=== PATIENT | male | born 1975 | race Caucasian/White ===

== ENCOUNTER → 2016-12-16 | Outpatient (CLI) | payer BC ==
[2016-12-16 18:16] LABS: BASO % 0.8 % (0.0-1.0); EOS # 0.2 K/mm3 (0.0-0.50); EOS % 2.6 % (0.0-3.0); LARGE UNSTAINED CELL # 0.2 K/mm3 (0.0-0.4); LARGE UNSTAINED CELL % 2.2 % (0.0-4.0); LYMPH # 2.1 K/mm3 (1.5-4.5); LYMPH % 29.7 % (24.0-44.0); MEAN CORPUSCULAR HEMOGLOBIN 31.2 pg (27.0-33.0); MEAN CORPUSCULAR HGB CONC 33.1 g/dl (32.0-36.5); MEAN CORPUSCULAR VOLUME 94.1 fl (80.0-96.0); MONO # 0.4 K/mm3 (0.0-0.8); MONO % 5.9 % (0.0-5.0); NEUTROPHILS # 3.9 K/mm3 (1.8-7.7); NEUTROPHILS % 58.8 % (36.0-66.0); PLATELET COUNT, AUTOMATED 202 k/mm3 (150-450); RED CELL DISTRIBUTION WIDTH 12.4 % (11.5-14.5); WHITE BLOOD COUNT 6.6 K/mm3 (4.0-10.0)
[2016-12-16 18:23] LABS: ALBUMIN 4.3 GM/DL (3.2-5.2); ALBUMIN/GLOBULIN RATIO 1.59 (1.00-1.93); ALKALINE PHOSPHATASE 56 U/L (45-117); ALT/SGPT 24 U/L (12-78); ANION GAP 2 MEQ/L (8-16); AST/SGOT 18 U/L (15-37); BILIRUBIN,TOTAL 0.4 MG/DL (0.2-1.0); BLOOD UREA NITROGEN 14 MG/DL (7-18); CALCIUM LEVEL 9.5 MG/DL (8.5-10.1); CARBON DIOXIDE LEVEL 33 MEQ/L (21-32); CHLORIDE LEVEL 107 MEQ/L (98-107); CREATININE FOR GFR 1.04 MG/DL (0.70-1.30); GLOMERULAR FILTRATION RATE > 60.0 (>60); GLUCOSE, FASTING 111 MG/DL (70-105); POTASSIUM SERUM 4.7 MEQ/L (3.5-5.1); SODIUM LEVEL 142 MEQ/L (136-145)
== END ==
LOC: M WUC 14:17
PROVIDERS: ATTEND Physician Assistant
DX: R31.9 Hematuria, unspecified (principal); R10.30 Lower abdominal pain, unspecified

== ENCOUNTER → 2016-12-18 | Outpatient (CLI) | payer BC ==
--- NOTE | 2016-12-18 10:56 | REP ---
KUB TWO VIEWS: HISTORY: Abdominal pain. A small amount of air is present in small and large intestine. There are no air fluid levels or dilated loops of intestine. There is no pneumoperitoneum. A moderate amount of stool is present in the colon. IMPRESSION: Nonspecific bowel gas pattern. Signed by Blayne Limon MD 12/18/2016 10:00 A
== END ==
LOC: M WUC 09:04
PROVIDERS: ATTEND Physician Assistant
DX: R10.30 Lower abdominal pain, unspecified (principal)

== ENCOUNTER 2021-08-25 11:53 | Emergency (ER) | payer OTHER, BC ==
[~2021-08-25] VITALS: Ht 200.7 cm; Wt 108.3 kg
[2021-08-25 17:55] VITALS: BP 138/88
== END 2021-08-25 17:56 | disposition home or self-care (01) ==
LOC: M ED 11:53
DX: R22.43 Localized swelling, mass and lump, lower limb, bilateral (principal); M25.561 Pain in right knee; X50.0XXA Overexertion from strenuous movement or load, initial encounter; Y92.9 Unspecified place or not applicable; Y93.9 Activity, unspecified; Y99.0 Civilian activity done for income or pay; Z88.0 Allergy status to penicillin; Z88.2 Allergy status to sulfonamides

== ENCOUNTER → 2021-08-28 | Outpatient (CLI) | payer OTHER, BC ==
[~2021-08-28] MED LIST: FLOM0.4C39 PO; HYDR-3713 PO; KETO10TAB PO; ONDA4TAB6 PO
== END ==
LOC: M SOG 09:39
PROVIDERS: ATTEND Orthopaedic Surgery Hand Surgery
DX: M25.561 Pain in right knee (principal)

== ENCOUNTER 2021-09-02 07:45 | Emergency (ER) | payer BC, OTHER ==
[~2021-09-02] VITALS: Ht 200.7 cm; Wt 104.5 kg
[2021-09-02] MEDS ORDERED: NS 1,000 ML IV ONE (08:45)
[2021-09-02] MEDS ORDERED: KETOROLAC 30 MG/ML 1ML VIAL IV ONE (08:45)
[2021-09-02 09:13] LABS: BASO # 0.1 10^3/uL (0.0-0.2); BASO % 0.6 % (0.0-1.0); EOS # 0.2 10^3/uL (0.0-0.5); EOS % 1.8 % (0.0-3.0); HEMATOCRIT 41.8 % (42.0-52.0); HEMOGLOBIN 14.1 g/dl (13.5-17.5); LYMPH # 3.1 10^3/uL (1.5-5.0); LYMPH % 31.4 % (24.0-44.0); MEAN CORPUSCULAR HGB CONC 33.7 g/dl (32.0-36.5); MEAN CORPUSCULAR VOLUME 88.9 fl (80.0-96.0); MONO % 9.5 % (2.0-8.0); NEUTROPHILS # 5.6 10^3/uL (1.5-8.5); NEUTROPHILS % 55.7 % (36.0-66.0); PLATELET COUNT, AUTOMATED 204 10^3/uL (150-450)
[2021-09-02 09:37] LABS: ALBUMIN 3.8 GM/DL (3.2-5.2); ALT/SGPT 56 U/L (12-78); BILIRUBIN,DIRECT 0.1 MG/DL (0.0-0.2); BILIRUBIN,TOTAL 0.4 MG/DL (0.2-1.0); BLOOD UREA NITROGEN 16 MG/DL (7-18); CALCIUM LEVEL 9.3 MG/DL (8.5-10.1); CARBON DIOXIDE LEVEL 27 MEQ/L (21-32); CHLORIDE LEVEL 108 MEQ/L (98-107); CREATININE FOR GFR 0.91 MG/DL (0.70-1.30); GLOMERULAR FILTRATION RATE > 60.0 (>60); GLUCOSE, FASTING 104 MG/DL (70-100); LIPASE 135 U/L (73-393); SODIUM LEVEL 140 MEQ/L (136-145); TOTAL PROTEIN 6.9 GM/DL (6.4-8.2)
[2021-09-02] MEDS ORDERED: KETO10TAB PO (11:11)
[2021-09-02] MEDS ORDERED: ONDA4TAB6 PO (11:11)
[2021-09-02] MEDS ORDERED: FLOM0.4C39 PO (11:11)
[2021-09-02] MEDS ORDERED: HYDR-3713 PO (11:11)
[2021-09-02 11:31] VITALS: BP 132/81
== END 2021-09-02 11:33 | disposition home or self-care (01) ==
LOC: M ED 07:45
DX: N20.2 Calculus of kidney with calculus of ureter (principal); K40.90 Unilateral inguinal hernia, without obstruction or gangrene, not specified as recurrent; Z88.0 Allergy status to penicillin; Z88.2 Allergy status to sulfonamides; Z79.899 Other long term (current) drug therapy
CPT/HCPCS: 74176; 80048; 80076; 81001; 83690; 85025; 96361; 96374; 99284; J1885

== ENCOUNTER → 2021-09-05 | Outpatient (CLI) | payer OTHER | LOC: M PLAIMG 14:49 → M PLALAB 14:49 | PROVIDERS: ATTEND Physician Assistant | DX: N20.1 Calculus of ureter (principal) ==

== ENCOUNTER → 2021-09-11 | Outpatient (CLI) | payer OTHER | LOC: M SOG 09:47 | PROVIDERS: ATTEND Physician Assistant | DX: M25.562 Pain in left knee (principal) ==

== ENCOUNTER 2021-10-09 11:20 | Emergency (ER) | payer OTHER ==
[~2021-10-09] VITALS: Ht 198.1 cm; Wt 102.3 kg
[2021-10-09 11:21] VITALS: BP 153/93
[2021-10-09] MEDS ORDERED: KETOROLAC 30 MG/ML 1ML VIAL IV ONE (12:00)
[2021-10-09] MEDS ORDERED: ONDANSETRON 4MG/2ML VIAL IV ONE (12:00)
[2021-10-09 12:17] LABS: BASO # 0.1 10^3/uL (0.0-0.2); BASO % 0.5 % (0.0-1.0); EOS # 0.1 10^3/uL (0.0-0.5); HEMATOCRIT 42.7 % (42.0-52.0); HEMOGLOBIN 14.5 g/dl (13.5-17.5); LYMPH # 1.6 10^3/uL (1.5-5.0); LYMPH % 16.5 % (24.0-44.0); MEAN CORPUSCULAR HEMOGLOBIN 30.3 pg (27.0-33.0); MEAN CORPUSCULAR VOLUME 89.3 fl (80.0-96.0); MONO # 0.6 10^3/uL (0.0-0.8); NEUTROPHILS # 7.4 10^3/uL (1.5-8.5); NEUTROPHILS % 75.6 % (36.0-66.0); PLATELET COUNT, AUTOMATED 204 10^3/uL (150-450); RED BLOOD COUNT 4.78 10^6/uL (4.30-6.10); WHITE BLOOD COUNT 9.7 10^3/uL (4.0-10.0)
[2021-10-09 12:44] LABS: ALBUMIN 4.2 GM/DL (3.2-5.2); ALT/SGPT 59 U/L (12-78); BILIRUBIN,DIRECT 0.2 MG/DL (0.0-0.2); BILIRUBIN,TOTAL 0.6 MG/DL (0.2-1.0); BLOOD UREA NITROGEN 17 MG/DL (7-18); CALCIUM LEVEL 9.7 MG/DL (8.5-10.1); CARBON DIOXIDE LEVEL 27 MEQ/L (21-32); CHLORIDE LEVEL 107 MEQ/L (98-107); CREATININE FOR GFR 1.26 MG/DL (0.70-1.30); GLOMERULAR FILTRATION RATE > 60.0 (>60); GLUCOSE, FASTING 129 MG/DL (70-100); LIPASE 152 U/L (73-393); POTASSIUM SERUM 4.3 MEQ/L (3.5-5.1); SODIUM LEVEL 141 MEQ/L (136-145); TOTAL PROTEIN 7.2 GM/DL (6.4-8.2)
[2021-10-09] MEDS ORDERED: FLOM0.4C39 PO (14:10)
[2021-10-09] MEDS ORDERED: KETO10TAB PO (14:22)
== END 2021-10-09 14:31 | disposition home or self-care (01) ==
LOC: M ED 11:20
DX: N20.0 Calculus of kidney (principal); K57.32 Diverticulitis of large intestine without perforation or abscess without bleeding; R16.1 Splenomegaly, not elsewhere classified; K40.91 Unilateral inguinal hernia, without obstruction or gangrene, recurrent; Z87.442 Personal history of urinary calculi; Z88.0 Allergy status to penicillin; Z88.2 Allergy status to sulfonamides
CPT/HCPCS: 74018; 74176; 80048; 80076; 81001; 83690; 85025; 93041; 96374; 99284; J1885; J2405

== ENCOUNTER → 2021-10-13 | Outpatient (REF) | payer OTHER | LOC: M SMT 17:01 | PROVIDERS: ATTEND Physician Assistant | DX: N20.1 Calculus of ureter (principal) ==

== ENCOUNTER → 2021-10-28 | Outpatient (CLI) | payer OTHER | LOC: M PLAIMG 14:34 | PROVIDERS: ATTEND Orthopaedic Surgery Hand Surgery | DX: S89.91XA Unspecified injury of right lower leg, initial encounter (principal) ==

== ENCOUNTER → 2021-12-10 | Outpatient (CLI) | payer OTHER | LOC: M LABSMTC 10:09 | PROVIDERS: ATTEND Anesthesiology | DX: Z11.52 Encounter for screening for COVID-19 (principal) ==

== ENCOUNTER 2021-12-15 12:19 | Day surgery (SDC) | payer OTHER ==
[~2021-12-15] VITALS: Ht 200.7 cm; Wt 105.7 kg
[~2021-12-15 12:19] MED LIST changes: +CLINDAMYCIN 600 MG in IV 1 EA IV ONE
[2021-12-15] MEDS ORDERED: CLINDAMYCIN 900 MG in IV 1 EA IV ONE (12:55)
[2021-12-15] MEDS ORDERED: LR 1,000 ML IV SCH ×2 (14:25→18:05)
[2021-12-15] MEDS ORDERED: ROCURONIUM BROMIDE 50 MG/5 ML VIAL As Ordered ONE (15:14)
[2021-12-15] MEDS ORDERED: LIDOCAINE 2% 100MG/5ML SDV (FOR ANES.) As Ordered ONE (15:15)
[2021-12-15] MEDS ORDERED: propofoL 200 MG/20 ML VIAL As Ordered ONE (15:15)
[2021-12-15] MEDS ORDERED: SUGAMMADEX SODIUM 500 MG/5 ML VIAL (BRIDION) As Ordered ONE (16:15)
[2021-12-15] MEDS ORDERED: fentaNYL 100 MCG/2 ML INJECTION As Ordered ONE (16:15)
[2021-12-15] MEDS ORDERED: MIDAZOLAM INJ 2MG/2ML VIAL (J2250 PER 1MG) As Ordered ONE (16:15)
[2021-12-15] MEDS ORDERED: dexameTHASONE 4 MG/ML 1ML VIAL (J1100 PER 1MG) As Ordered ONE (16:16)
[2021-12-15] MEDS ORDERED: KETOROLAC 60MG 2ML VIAL As Ordered ONE (16:16)
[2021-12-15] MEDS ORDERED: ONDANSETRON 4MG 2ML VIAL As Ordered ONE (16:16)
[2021-12-15] MEDS ORDERED: BUPIVACAINE/EPIN 0.25% 30 ML VIAL As Ordered ONE (16:25)
[2021-12-15] MEDS ORDERED: oxyCODONE 5MG TAB PO PRN (18:05)
[2021-12-15] MEDS ORDERED: fentaNYL 100 MCG/2 ML INJECTION IV PRN (18:05)
[2021-12-15] MEDS ORDERED: METOCLOPRAMIDE INJ 10MG/2ML VIAL (J2765 PER 1) IV PRN (18:05)
[2021-12-15] MEDS ORDERED: ONDANSETRON 4MG 2ML VIAL IV PRN (18:05)
[2021-12-15] MEDS ORDERED: HYDROMORPHONE HCL 0.5 MG/ 0.5 ML SYRINGE (J1170 PER 1) IV PRN (18:05)
[2021-12-15] MEDS ORDERED: NORCO, ANEXSIA 5/325MG TABLET (HYDROcodone/ACETAMINOPHEN) PO PRN (18:45)
[2021-12-15 18:55] VITALS: BP 144/81
== END 2021-12-15 19:32 | disposition home or self-care (01) ==
LOC: M SDC 12:19
PROVIDERS: ATTEND Surgery
DX: K40.90 Unilateral inguinal hernia, without obstruction or gangrene, not specified as recurrent (principal); Z88.0 Allergy status to penicillin; Z88.2 Allergy status to sulfonamides; Z87.891 Personal history of nicotine dependence
CPT/HCPCS: 49650; C1781; J1100; J1885; J2250; J2405; J3010; S2900

== ENCOUNTER → 2023-07-23 | Outpatient (REF) | payer OTHER ==
[~2023-07-23] MED LIST changes: -CLINDAMYCIN 600 MG in IV 1 EA IV ONE
[2023-07-23 13:20] LABS: SEMEN APPEARANCE OPAQUE (OPAQUE); SEMEN VISCOSITY LIQUID (LIQUID); SEMEN VOLUME 3.5 ml (2.0-5.0); SEMEN pH 8.5 (7.0-8.0)
[2023-07-23 13:21] LABS: WBC CONCENTRATION <=1 M/ml (<=1 M/ml)
== END ==
LOC: M LAB REF 12:52
PROVIDERS: ATTEND Physician Assistant
DX: Z30.2 Encounter for sterilization (principal)